=== PATIENT | male | born 1965 | race Caucasian/White ===

== ENCOUNTER 2016-06-05 10:45 | Emergency (ER) | payer OTHER ==
[2016-06-05 11:04] VITALS: BP 132/78; PULSE 62; TEMP 98; BMI 24.3
[2016-06-05] MEDS ORDERED: KETOROLAC TROMETHAMINE 60 MG/2 ML VIAL IM ONE (12:07)
[2016-06-05] MEDS ORDERED: KETOROLAC TROMETHAMINE 60 MG/2 ML VIAL ONE (12:22)
--- NOTE | 2016-06-05 12:40 | PDOC ---
History of Present Illness - General Chief Complaint: Pain Stated Complaint: LBP,MUSCLE SPASM Time Seen by Provider: 06/05/16 11:50 History Source: Patient Exam Limitations: No Limitations - History of Present Illness Initial Comments: 06/05/16 12:35 50 yr male with c/o low back pain and spasm started yesterday after shoveling snow. Denies urinary or bowel dysfunction. Neg abd pain. Pt has neg saddle anesthesia , history of low back pain and spam in the past. Occurred: reports: yesterday Severity: reports: moderate Pain Location: reports: back Past History - Past Medical History Allergies/Adverse Reactions: Allergies Allergy/AdvReac Type Severity Reaction Status Date / Time No Known Allergies Allergy Verified 06/05/16 11:01 Home Medications: Ambulatory Orders Metoprolol Succinate [Toprol XL -] 25 mg PO DAILY 01/23/13 Cyclobenzaprine HCl [Flexeril -] 5 mg PO TID PRN #21 tablet 06/05/16 Naproxen [Naprosyn -] 500 mg PO BID PRN #14 tablet 06/05/16 Cardiac Disorders: Yes (MVP) Suicide Attempt (Hx): No Other medical history: back problems - Surgical History Appendectomy: Yes Cholecystectomy: Yes - Immunization History Immunization Up to Date: Yes - Psycho/Social/Smoking Cessation Hx Anxiety: No Suicidal Ideation: No Smoking Status: No Smoking History: Never smoked Have you smoked in the past 12 months: No Number of Cigarettes Smoked Daily: 0 Information on smoking cessation initiated: No Hx Alcohol Use: No Drug/Substance Use Hx: No Substance Use Type: None Trauma Specific PMHX - Complaint Specific PMHX Arthritis: No Back Injury: Yes *Physical Exam - Vital Signs Last Vital Signs Temp Pulse Resp BP Pulse Ox 98.0 F 62 18 132/78 100 06/05/16 11:02 06/05/16 11:02 06/05/16 11:02 06/05/16 11:02 06/05/16 11:02 - Physical Exam General Appearance: Yes: Nourished, Appropriately Dressed HEENT: positive: EOMI, LOUIS, Normal ENT Inspection, TMs Normal, Pharynx Normal Neck: positive: Supple. negative: Tender Respiratory/Chest: positive: Lungs Clear, Normal Breath Sounds. negative: Chest Tender Cardiovascular: positive: Regular Rhythm, Regular Rate Gastrointestinal/Abdominal: positive: Normal Bowel Sounds, Soft Musculoskeletal: positive: Normal Inspection, Muscle Spasm (right lower lumbar spine paraspinal soft tissue, neg vetebral tenderness ). negative: CVA Tenderness, CVA Tenderness (R), CVA Tenderness (L) Extremity: positive: Normal Capillary Refill, Normal Inspection, Normal Range of Motion Integumentary: positive: Normal Color, Dry, Warm Neurologic: positive: Fully Oriented, Alert, Normal Mood/Affect, Normal Response , Motor Strength 5/5 ED Treatment Course - Medications Given in the ED: ED Medications Discontinued Medications Generic Name Dose Route Start Last Admin Trade Name Epifanioq PRN Reason Stop Dose Admin Ketorolac Tromethamine 60 mg 06/05/16 12:07 06/05/16 12:30 Toradol Injection - IM 06/05/16 12:08 60 mg ONCE ONE Administration Medical Decision Making - Medical Decision Making 06/05/16 12:37 cc: low back pain with spasm, since shoveling yesterday worse with movement, worse with bending forward. no urine or bowel dysfunction will give toradol and dc home with muscle relaxants *DC/Admit/Observation/Transfer Diagnosis at time of Disposition: Low back pain Qualifiers: Chronicity: acute Back pain laterality: right Sciatica presence: with sciatica Sciatica laterality: sciatica of right side Qualified Code(s): M54.41 - Lumbago with sciatica, right side - Discharge Dispostion Disposition: HOME Condition at time of disposition: Good - Prescriptions Prescriptions: Cyclobenzaprine HCl [Flexeril -] 5 mg PO TID PRN #21 tablet PRN Reason: Muscle Spasms Naproxen [Naprosyn -] 500 mg PO BID PRN #14 tablet PRN Reason: Back Pain - Referrals Referrals: Jared Zacarias MD [Staff Physician] - - Patient Instructions Additional Instructions: follow with the orthopedist next week for follow up apply ice to lower back every 2hrs for 20 minutes take naprosyn and flexeril as directed for pain and spasm for the next 3-4 days Return to ER for any worsening symptoms
== END 2016-06-05 12:47 | disposition home or self-care (01) ==
LOC: JERFT 10:45
PROC: 3E0233Z Introduction of Anti-inflammatory into Muscle, Percutaneous Approach (ICD-10-PCS; principal; 2016-06-05)
DX: M54.41 Lumbago with sciatica, right side (principal)
CPT/HCPCS: 99281-25

== ENCOUNTER 2016-09-10 22:37 | Emergency (ER) | payer OTHER ==
[2016-09-10 22:43] VITALS: BP 117/67; PULSE 88; TEMP 98; BMI 25.8
[2016-09-10] MEDS ORDERED: IBUPROFEN 400 MG TABLET (FP) PO ONE ×2 (23:19→23:26)
[2016-09-10] MEDS ORDERED: AMOX TR/POT CLAV 875MG/125MG TABLETS (FP) PO STA (23:20)
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
== END 2016-09-10 23:51 | disposition home or self-care (01) ==
LOC: JER 22:37
DX: L03.012 Cellulitis of left finger (principal); S61.235A Puncture wound without foreign body of left ring finger without damage to nail, initial encounter; W27.0XXA Contact with workbench tool, initial encounter; Y93.89 Activity, other specified; Y92.89 Other specified places as the place of occurrence of the external cause; Y99.0 Civilian activity done for income or pay
CPT/HCPCS: 99281-25

== ENCOUNTER 2018-09-16 12:58 | Emergency (ER) | payer OTHER ==
[2018-09-16 13:03] VITALS: BP 116/59; PULSE 67; TEMP 97.7; BMI 22.8
[2018-09-16] MEDS ORDERED: KETOROLAC TROMETHAMINE 60 MG/2 ML VIAL IM ONE (13:50)
[2018-09-16] MEDS ORDERED: CYCLOBENZAPRINE HCL 10 MG TABLET (FP) PO ONE (13:50)
[2018-09-16] MEDS ORDERED: KETOROLAC TROMETHAMINE 60 MG/2 ML VIAL ONE (13:53)
--- NOTE | 2018-09-16 13:57 | PDOC ---
History of Present Illness - General Chief Complaint: Back Pain Stated Complaint: LOWER BACK PAIN Time Seen by Provider: 09/16/18 13:29 History Source: Patient, Parent(s) Exam Limitations: No Limitations - History of Present Illness Initial Comments: 09/16/18 13:52 Patient here with acute onset of chronic low back pain. Is uncertain as to cause of injury but states has intermittent/yearly type spasmodic event where he states received an injection here and some other medication which generally resolves his pain. Denies numbness or tingling to feet or hands, denies problem with bowel or bladder. No fevers, and no recent injury or chest exercise change. Occurred: reports: yesterday Severity: reports: mild, moderate Pain Location: reports: back Method of Injury: Yes: unknown Modifying Factors: improves with: None Loss of Consciousness: no loss of consciousness Associated Symptoms (Fall): denies symptoms Past History - Travel Traveled outside of the country in the last 30 days: No Close contact w/someone who was outside of country & ill: No - Past Medical History Allergies/Adverse Reactions: Allergies Allergy/AdvReac Type Severity Reaction Status Date / Time No Known Allergies Allergy Verified 09/16/18 13:03 Home Medications: Ambulatory Orders Cyclobenzaprine HCl 10 mg PO Q8H PRN #14 tablet 09/16/18 Naproxen [Naprosyn -] 500 mg PO BID #30 tablet 09/16/18 Cardiac Disorders: Yes (MVP) COPD: No - Surgical History Appendectomy: Yes Cholecystectomy: Yes - Immunization History Immunization Up to Date: Yes - Suicide/Smoking/Psychosocial Hx Smoking Status: No Smoking History: Never smoked Have you smoked in the past 12 months: No Number of Cigarettes Smoked Daily: 0 Information on smoking cessation initiated: No Hx Alcohol Use: No Drug/Substance Use Hx: No Substance Use Type: None Trauma Specific PMHX - Complaint Specific PMHX Arthritis: No Back Injury: Yes Review of Systems - Review of Systems Able to Perform ROS?: Yes Is the patient limited Vietnamese proficient: Yes Constitutional: Yes: Symptoms Reported, See HPI, Malaise. No: Fever, Loss of Appetite HEENTM: Yes: See HPI. No: Symptoms Reported ABD/GI: No: Symptoms Reported Musculoskeletal: Yes: Symptoms Reported, See HPI, Back Pain, Muscle Pain, Muscle Weakness Integumentary: Yes: Symptoms Reported, See HPI. No: Rash Neurological: Yes: Symptoms reported, See HPI All Other Systems: Reviewed and Negative *Physical Exam - Vital Signs Last Vital Signs Temp Pulse Resp BP Pulse Ox 97.7 F 67 18 116/59 L 100 09/16/18 13:01 09/16/18 13:01 09/16/18 13:01 09/16/18 13:01 09/16/18 13:01 - Physical Exam General Appearance: Yes: Nourished, Appropriately Dressed HEENT: positive: EOMI, LOUIS, Pharynx Normal Neck: positive: Supple. negative: Lymphadenopathy (R), Lymphadenopathy (L) Respiratory/Chest: positive: Lungs Clear, Normal Breath Sounds Gastrointestinal/Abdominal: positive: Soft. negative: Tender Musculoskeletal: positive: Normal Inspection, Muscle Spasm. negative: CVA Tenderness, Decreased Range of Motion Extremity: positive: Normal Capillary Refill, Normal Inspection, Normal Range of Motion Integumentary: positive: Normal Color, Dry, Pale Neurologic: positive: hand glass cutter II-XII NML intact, Fully Oriented, Alert, Normal Mood/ Affect, Normal Response, Motor Strength 5/5 Progress Note - Progress Note Progress Note: Low back strain, will treat with NSAIDs and cyclobenzaprine *DC/Admit/Observation/Transfer Diagnosis at time of Disposition: Low back strain Qualifiers: Encounter type: initial encounter Qualified Code(s): S39.012A - Strain of muscle, fascia and tendon of lower back, initial encounter - Discharge Dispostion Disposition: HOME Condition at time of disposition: Stable Decision to Admit order: No - Prescriptions Prescriptions: Cyclobenzaprine HCl 10 mg PO Q8H PRN #14 tablet PRN Reason: spasm Naproxen [Naprosyn -] 500 mg PO BID #30 tablet - Referrals Referrals: Yemi Garcia MD [Primary Care Provider] - - Patient Instructions Printed Discharge Instructions: DI for Back Strain or Sprain Additional Instructions: Rest, no heavy lifting or exercise until pain is resolved Hot soaks to neck and low back as often as possible/hot showers or Jacuzzis No massage or therapy until spasm is gone Continue Naprosyn 500 mg tablet, 1 tablet every 8 hours for the next 3 days then as needed for pain and swelling Cyclobenzaprine 1-10mg every 8 hours as needed for spasm If not significant improvement within 24 hours with medication and rest regime, followup with private physician for change in medications and /or therapy. - Post Discharge Activity Forms/Work/School Notes: Back to Work
== END 2018-09-16 14:37 | disposition home or self-care (01) ==
LOC: JERFT 12:58
PROC: 3E0233Z Introduction of Anti-inflammatory into Muscle, Percutaneous Approach (ICD-10-PCS; principal; 2018-09-16)
DX: S39.012A Strain of muscle, fascia and tendon of lower back, initial encounter (principal); X58.XXXA Exposure to other specified factors, initial encounter; Y93.89 Activity, other specified; Y92.89 Other specified places as the place of occurrence of the external cause; G89.29 Other chronic pain; I34.1 Nonrheumatic mitral (valve) prolapse
CPT/HCPCS: 99281-25

== ENCOUNTER 2021-06-17 17:20 | Emergency (ER) | payer SELFPAY ==
[2021-06-17 18:01] VITALS: BP 114/65; PULSE 80; TEMP 98; BMI 25.1
[2021-06-17] MEDS ORDERED: KETOROLAC TROMETHAMINE 30 MG/1 ML VIAL IM ONE (18:24)
[2021-06-17] MEDS ORDERED: KETOROLAC TROMETHAMINE 60 MG/2 ML VIAL ONE (18:31)
== END 2021-06-17 18:45 | disposition home or self-care (01) ==
LOC: JERFT 17:20
PROC: 3E0233Z Introduction of Anti-inflammatory into Muscle, Percutaneous Approach (ICD-10-PCS; principal; 2021-06-17)
DX: M54.42 Lumbago with sciatica, left side (principal)
CPT/HCPCS: 99284-25

== ENCOUNTER 2021-06-22 10:37 | Emergency (ER) | payer SELFPAY ==
[2021-06-22 10:44] VITALS: BP 131/73; PULSE 79; TEMP 97.4; BMI 22.8
[2021-06-22] MEDS ORDERED: KETOROLAC TROMETHAMINE 30 MG/1 ML VIAL IM ONE (11:03)
[2021-06-22] MEDS ORDERED: KETOROLAC TROMETHAMINE 30 MG/1 ML VIAL ONE (11:22)
== END 2021-06-22 11:27 | disposition home or self-care (01) ==
LOC: JERFT 10:37
PROC: 3E0233Z Introduction of Anti-inflammatory into Muscle, Percutaneous Approach (ICD-10-PCS; principal; 2021-06-22)
DX: S39.012A Strain of muscle, fascia and tendon of lower back, initial encounter (principal); X50.0XXA Overexertion from strenuous movement or load, initial encounter
CPT/HCPCS: 99284-25

== ENCOUNTER 2021-12-04 09:10 | Emergency (ER) | payer OTHER ==
[2021-12-04 09:34] VITALS: BP 113/66; PULSE 62; RESP 16; TEMP 97.9; BMI 23.4
[2021-12-04] MEDS ORDERED: CYCLOBENZAPRINE HCL 10 MG TABLET (FP) PO ONE (10:18)
[2021-12-04] MEDS ORDERED: LIDOCAINE 5% TOPICAL PATCH TP ONE (10:18)
[2021-12-04] MEDS ORDERED: KETOROLAC TROMETHAMINE 30 MG/1 ML VIAL IM ONE (10:18)
[2021-12-04] MEDS ORDERED: LIDOCAINE 5% TOPICAL PATCH ONE (10:31)
[2021-12-04] MEDS ORDERED: KETOROLAC TROMETHAMINE 30 MG/1 ML VIAL ONE (10:31)
[2021-12-04] MEDS ORDERED: CYCLOBENZAPRINE HCL 10 MG TABLET (FP) ONE (10:31)
[2021-12-04] MEDS ORDERED: LIDOCAINE PATCH REMOVAL MC SCH (22:00)
== END 2021-12-04 10:45 | disposition home or self-care (01) ==
LOC: JERFT 09:10
PROC: 3E023GC Introduction of Other Therapeutic Substance into Muscle, Percutaneous Approach (ICD-10-PCS; principal; 2021-12-04)
DX: M54.89 Other dorsalgia (principal)
CPT/HCPCS: 99284-25

== ENCOUNTER 2022-09-22 11:25 | Emergency (ER) | payer OTHER ==
[2022-09-22 11:39] VITALS: BP 118/60; PULSE 80; RESP 18; TEMP 98.2; BMI 23.3
[2022-09-22] MEDS ORDERED: KETOROLAC TROMETHAMINE 60 MG/2 ML VIAL IM ONE (12:51)
[2022-09-22] MEDS ORDERED: KETOROLAC TROMETHAMINE 60 MG/2 ML VIAL ONE (13:16)
== END 2022-09-22 14:15 | disposition home or self-care (01) ==
LOC: JERFT 11:25 → JER 11:25 → JERFT 14:15
PROC: 3E0233Z Introduction of Anti-inflammatory into Muscle, Percutaneous Approach (ICD-10-PCS; principal; 2022-09-22)
DX: M54.41 Lumbago with sciatica, right side (principal)
CPT/HCPCS: 72100-TC-FY; 99284-25

== ENCOUNTER 2023-06-11 06:55 | Emergency (ER) | payer OTHER ==
[2023-06-11 07:01] VITALS: BMI 24.2
[2023-06-11 08:39] LABS: HEMATOCRIT 45.6 % (35.4-49); HEMOGLOBIN 15.7 GM/dL (11.7-16.9); MCH 29.5 pg (25.7-33.7); MCHC 34.4 g/dl (32.0-35.9); MEAN CELL VOLUME 85.8 fl (80-96); MEAN PLT VOLUME 6.8 fl (7.5-11.1); PLATELET COUNT 259 10^3/uL (134-434); RBC 5.31 M/mm3 (4.00-5.60); RDW 13.2 % (11.9-15.9); WHITE BLOOD COUNT 6.1 K/mm3 (4.0-10.0)
[2023-06-11 08:55] LABS: POTASSIUM 4.4 mmol/L (3.5-5.1)
[2023-06-11 08:57] LABS: ALBUMIN 4.7 g/dl (3.4-5.0); CALCIUM 9.7 mg/dL (8.5-10.1)
[2023-06-11 08:58] LABS: BLOOD UREA NITROGEN 9.6 mg/dL (7-18)
[2023-06-11 09:00] LABS: CREATININE 1.1 mg/dL (0.55-1.3)
[2023-06-11 09:02] LABS: BILIRUBIN,TOTAL 0.9 mg/dL (0.2-1); TOT PROT 7.8 g/dl (6.4-8.2)
[2023-06-11 11:42] VITALS: BP 145/67; PULSE 73; RESP 19; TEMP 97.7
== END 2023-06-11 11:10 | disposition home or self-care (01) ==
LOC: JER 06:55
DX: R68.84 Jaw pain (principal); M25.511 Pain in right shoulder; M26.602 Left temporomandibular joint disorder, unspecified
CPT/HCPCS: 36415; 71046-TC-FY; 80053; 84484; 85027; 93005; 93010; 99285-25